=== PATIENT | male | born 1990 | race Caucasian/White ===

== ENCOUNTER 2016-11-06 12:31 | Emergency (ER) | payer SELFPAY | END 2016-11-06 13:30 | disposition home or self-care (01) | LOC: D.ER 12:31 | DX: K02.9 Dental caries, unspecified (principal); K04.7 Periapical abscess without sinus; F17.200 Nicotine dependence, unspecified, uncomplicated; R51 Headache ==

== ENCOUNTER 2019-02-07 17:00 | Emergency (ER) | payer SELFPAY ==
[~2019-02-07] VITALS: Ht 182.9 cm; Wt 72.7 kg
[2019-02-07 17:25] VITALS: Ht 182.9 cm; Wt 72.7 kg
[2019-02-07 18:02] LABS: BASOPHILS 0.1 % (0-2); HEMOGLOBIN 16.7 g/dL (13.5-17.5); IMMATURE GRANULOCYTES 0.1 % (0-5); LYMPHOCYTES 16.6 % (15-50); MCH 33.8 pg (26.0-34.0); MCHC 35.5 g/dL (31.0-37.0); MCV 95.1 fL (80.0-100.0); MONOCYTES 9.4 % (2-11); NEUTROPHILS 70.8 % (40-80); PLATELET COUNT 250 10x3/uL (130-400); RBC 4.94 10x6/uL (4.20-6.10); RDW 12.4 % (11.5-14.5); WBC 8.1 10x3/uL (4.8-10.8)
[2019-02-07 18:30] LABS: CALC OSMOLALITY 280 mosm/kg (275-300); CALCIUM 9.1 mg/dL (8.5-10.1); CHLORIDE - SERUM 103 mmol/L (98-107); CREATININE - SERUM 1.1 mg/dL (0.6-1.3); GLUCOSE 89 mg/dL (74-106); POTASSIUM - SERUM 4.2 mmol/L (3.5-5.1); SODIUM 141 mmol/L (136-145); UREA NITROGEN 14 mg/dL (7-18); eGFR NON AFRICAN AMERICAN 85 mL/min (90-120)
[2019-02-07 18:39] LABS: ALKALINE PHOSPHATASE 95 U/L (46-116); ALT (SGPT) 45 U/L (10-68); AMYLASE - SERUM 47 U/L (25-115); BILIRUBIN - TOTAL 1.23 mg/dL (0.2-1.3); LIPASE 168 U/L (73-393); PROTEIN - SERUM 7.4 g/dL (6.4-8.2)
[2019-02-07 18:57] LABS: UDS - AMPHET NEGATIVE QUAL (NEGATIVE); UDS - BARB NEGATIVE QUAL (NEGATIVE); UDS - BENZO NEGATIVE QUAL (NEGATIVE); UDS - COCAINE NEGATIVE QUAL (NEGATIVE); UDS - OPIATE NEGATIVE QUAL (NEGATIVE); UDS - PCP NEGATIVE QUAL (NEGATIVE); UDS - THC POSITIVE QUAL (NEGATIVE)
[2019-02-07 19:10] LABS: APPEARANCE CLEAR (CLEAR); BILIRUBIN NEGATIVE (NEGATIVE); COLOR YELLOW (YELLOW); GLUCOSE NEGATIVE (NEGATIVE); KETONE MODERATE mg/dL (NEGATIVE); NITRITE NEGATIVE (NEGATIVE); PROTEIN TRACE mg/dL (NEGATIVE); SPECIFIC GRAVITY 1.025 (1.005-1.020); UROBILINOGEN NORMAL (NORMAL)
[2019-02-07 19:12] LABS: BACTERIA FEW /hpf (NEGATIVE); MUCUS <1+ /lpf (NONE SEEN); RED CELLS - URINE OCC /hpf (0-5); WHITE CELLS - URINE 0-5 /hpf (NEGATIVE)
[2019-02-07] MEDS ORDERED: ZOFRAN4 MG PO (19:25)
[2019-02-07 20:02] VITALS: BP 142/88
== END 2019-02-07 20:02 | disposition home or self-care (01) ==
LOC: D.ER 17:00
PROVIDERS: Emergency Medicine
DX: R11.2 Nausea with vomiting, unspecified (principal); B34.9 Viral infection, unspecified